=== PATIENT | female | born 1975 | race Hispanic/Latino ===

== ENCOUNTER 2017-11-29 08:39 | Inpatient (IN) | payer SELFPAY ==
[~2017-11-29] VITALS: Ht 167.6 cm; Wt 67.4 kg
[2017-11-29] MEDS ORDERED: ONDANSETRON HCL 4 MG/2 ML VIAL ONE (10:07)
[2017-11-29] MEDS ORDERED: MORPHINE SULFATE 4 MG/1ML SYG ONE ×2 (10:07→11:58)
[2017-11-29 10:33] LABS: BASOPHILS % (AUTO) 1.1 % (0.0-5.0); EOSINOPHILS % (AUTO) 0.5 % (0.0-8.0); HEMATOCRIT 42.2 % (36-48); LYMPHOCYTES % (AUTO) 17.9 % (21.0-51.0); MEAN CORPUSCULAR HEMOGLOBIN 36.3 pg (27.0-33.0); MEAN CORPUSCULAR HGB CONC 34.5 g/dL (32.0-36.0); MONOCYTES % (AUTO) 5.8 % (3.0-13.0); NEUTROPHILS % (AUTO) 74.7 % (40.0-77.0); PLATELET COUNT (AUTO) 223 K/uL (130-400); RED BLOOD CELL COUNT(AUTO) 4.01 MIL/uL (4.00-5.50); RED CELL DISTRIBUTION WIDTH 14.1 % (11.0-15.5); WHITE BLOOD COUNT (AUTO) 11.6 K/uL (4.8-10.8)
[2017-11-29 10:36] LABS: CREATININE 0.8 mg/dL (0.5-1.5); POTASSIUM 4.2 mmol/L (3.5-5.1)
[2017-11-29] MEDS ORDERED: HYDRALAZINE HCL 20 MG/ML VIAL IV PRN (12:30)
[2017-11-29] MEDS ORDERED: HYDROCODONE/ACETAMINOPHEN 5/325 MG TAB PO PRN (12:30)
[2017-11-29 12:48] LABS: HEMOGLOBIN A1C 5.1 % (4.0-6.0)
[2017-11-29 12:53] LABS: % IRON SATURATION 15.3 % (22-44)
[2017-11-29] MEDS ORDERED: HEPARIN SODIUM 5000UNIT/ML 1ML VIAL SQ SCH (14:00)
[2017-11-29] MEDS: HYDROCODONE/ACETAMINOPHEN 5/325 MG TAB PO PRN ×3 (14:02→23:41)
[2017-11-29 14:04] VITALS: BP 148/105
[2017-11-29] MEDS: SODIUM CHLORIDE 0.9% 1000ML 1,000 ML IV SCH (14:20)
[2017-11-29] MEDS ORDERED: ENOXAPARIN SODIUM 40 MG/0.4 ML SYRINGE SQ SCH (14:30)
[2017-11-29] MEDS ORDERED: MORPHINE SULFATE 2 MG/ML 1ML SYG IM PRN (15:45)
[2017-11-29] MEDS ORDERED: MORPHINE SULFATE 4 MG/1ML SYG IM PRN (15:45)
[2017-11-29 15:56] VITALS: BP 121/85
[2017-11-29 19:30] VITALS: BP 132/85
[2017-11-29] MEDS: FAMOTIDINE/PF 20 MG/2 ML VIAL IV SCH (19:49)
[2017-11-29] MEDS: NEOMY SULF/BACITRA/POLYMYXIN B 1 EACH PACKET TP SCH (20:33)
[2017-11-29] MEDS: MORPHINE SULFATE 4 MG/1ML SYG IVP PRN (21:22)
[2017-11-29] MEDS ORDERED: MORPHINE SULFATE 2 MG/ML 1ML SYG IV PRN (21:45)
[2017-11-29 22:21] LABS: APPEARANCE,URINE Clear (CLEAR); BILIRUBIN,URINE Negative (NEGATIVE); COLOR,URINE Yellow (YELLOW); GLUCOSE, URINE (UA) Negative (NEGATIVE); KETONES,URINE Negative (NEGATIVE); LEUKOCYTE ESTERASE ,URINE Negative (NEGATIVE); NITRATE,URINE Negative (NEGATIVE); OCCULT BLOOD,URINE Negative (NEGATIVE); PH,URINE 5.5 (5.0-8.0); PROTEIN,URINE Negative (NEGATIVE); UROBILINOGEN,URINE 0.2 mg/dL (0.2-1.0)
[2017-11-29 22:29] LABS: AMPHET/METH SCREEN,URINE NEGATIVE (NEGATIVE); BARBITURATE SCREEN, URINE NEGATIVE (NEGATIVE); BENZODIAZEPINES SCREEN,URINE NEGATIVE (NEGATIVE); CANNABINOID SCREEN,URINE POSITIVE (NEGATIVE); COCAINE SCREEN,URINE NEGATIVE (NEGATIVE); OPIATE SCREEN,URINE POSITIVE (NEGATIVE); PHENCYCLIDINE SCREEN,URINE NEGATIVE (NEGATIVE)
[2017-11-29 23:13] VITALS: BP 130/79
[2017-11-30] VITALS (22 sets, daily range): BP systolic 108–149; BP diastolic 49–89
[2017-11-30] MEDS: SODIUM CHLORIDE 0.9% 1000ML 1,000 ML IV SCH ×2 (01:41→20:40)
[2017-11-30 04:19] LABS: BASOPHILS % (AUTO) 0.5 % (0.0-5.0); EOSINOPHILS % (AUTO) 1.1 % (0.0-8.0); HEMATOCRIT 38.9 % (36-48); LYMPHOCYTES % (AUTO) 23.9 % (21.0-51.0); MEAN CORPUSCULAR HEMOGLOBIN 35.8 pg (27.0-33.0); MEAN CORPUSCULAR HGB CONC 34.1 g/dL (32.0-36.0); MEAN CORPUSCULAR VOLUME 104.9 fL (79-99); NEUTROPHILS % (AUTO) 65.5 % (40.0-77.0); PLATELET COUNT (AUTO) 162 K/uL (130-400); RED BLOOD CELL COUNT(AUTO) 3.71 MIL/uL (4.00-5.50); WHITE BLOOD COUNT (AUTO) 8.4 K/uL (4.8-10.8)
[2017-11-30 04:39] LABS: ALBUMIN 3.1 g/dL (3.5-5.0); BILIRUBIN,TOTAL 0.6 mg/dL (0.2-1.0); CREATININE 0.8 mg/dL (0.5-1.5); INR 0.92 (0.85-1.15); PARTIAL THROMBOPLASTIN TIME 29.6 SEC (26.3-35.5); POTASSIUM 3.8 mmol/L (3.5-5.1); PROTHROMBIN TIME 9.7 SEC (9.6-11.6); TOTAL PROTEIN, SERUM 6.6 g/dL (6.0-8.3)
[2017-11-30] MEDS: FAMOTIDINE/PF 20 MG/2 ML VIAL IV SCH ×2 (08:19→20:40)
[2017-11-30] MEDS: MORPHINE SULFATE 4 MG/1ML SYG IVP PRN (08:19)
[2017-11-30] MEDS: NEOMY SULF/BACITRA/POLYMYXIN B 1 EACH PACKET TP SCH ×2 (08:23→20:41)
[2017-11-30] MEDS: HYDROCODONE/ACETAMINOPHEN 5/325 MG TAB PO PRN (10:35)
[2017-11-30 10:39] LABS: HEMATOCRIT 39.2 % (36-48); MEAN CORPUSCULAR HEMOGLOBIN 35.9 pg (27.0-33.0); MEAN CORPUSCULAR HGB CONC 34.2 g/dL (32.0-36.0); MEAN CORPUSCULAR VOLUME 105.2 fL (79-99); PLATELET COUNT (AUTO) 165 K/uL (130-400); RED BLOOD CELL COUNT(AUTO) 3.72 MIL/uL (4.00-5.50); RED CELL DISTRIBUTION WIDTH 14.1 % (11.0-15.5); WHITE BLOOD COUNT (AUTO) 7.7 K/uL (4.8-10.8)
[2017-11-30 10:51] LABS: INR 0.92 (0.85-1.15); PARTIAL THROMBOPLASTIN TIME 29.5 SEC (26.3-35.5); PROTHROMBIN TIME 9.7 SEC (9.6-11.6)
[2017-11-30 10:52] LABS: CREATININE 0.7 mg/dL (0.5-1.5); POTASSIUM 3.9 mmol/L (3.5-5.1)
[2017-11-30] MEDS ORDERED: CEFAZOLIN SODIUM 1 GM VIAL IVP PRN (13:30)
[2017-11-30] MEDS ORDERED: PROPOFOL 10 MG/ML 20ML VIAL IV ONE (14:01)
[2017-11-30] MEDS ORDERED: MIDAZOLAM HCL 1 MG/ML 2ML VIAL ONE (14:01)
[2017-11-30] MEDS ORDERED: DEXAMETHASONE SOD PHOSPHATE 10MG/ML 1ML VIAL ONE (14:01)
[2017-11-30] MEDS ORDERED: LIDOCAINE PF 2% 5ML ABBOJECT ONE (14:01)
[2017-11-30] MEDS ORDERED: NEOSTIGMINE 5MG/5ML SYR IV ONE (14:02)
[2017-11-30] MEDS ORDERED: ROCURONIUM 10MG/1ML SYR 10 MG/ML ML ONE (14:02)
[2017-11-30] MEDS ORDERED: ONDANSETRON HCL 4 MG/2 ML VIAL ONE ×3 (14:02→17:34)
[2017-11-30] MEDS ORDERED: FENTANYL CITRATE PF 50 MCG/1 ML 2ML VIAL ONE ×2 (14:06→14:52)
[2017-11-30] MEDS ORDERED: GLYCOPYRROLATE 1 MG/5 ML SYRINGE ONE (16:24)
[2017-11-30] MEDS ORDERED: KETOROLAC TROMETHAMINE 30MG/ML ONE (16:48)
[2017-11-30] MEDS ORDERED: MEPERIDINE-PF 25 MG/ML SYG ONE (17:16)
[2017-11-30] MEDS ORDERED: METOCLOPRAMIDE 10 MG/2 ML VIAL ONE (17:34)
[2017-11-30] MEDS ORDERED: KETOROLAC TROMETHAMINE 30MG/ML IV PRN (18:45)
[2017-11-30] MEDS: HYDROCODONE/ACETAMINOPHEN 5/325 MG TAB PO SCH (20:39)
[2017-11-30] MEDS: CEFAZOLIN SODIUM 1 GM VIAL IVP SCH (20:40)
[2017-12-01 00:35] VITALS: BP 113/79
[2017-12-01] MEDS: HYDROCODONE/ACETAMINOPHEN 5/325 MG TAB PO SCH ×5 (01:01→17:00)
[2017-12-01 04:24] VITALS: BP 122/86
[2017-12-01] MEDS: CEFAZOLIN SODIUM 1 GM VIAL IVP SCH (04:59)
[2017-12-01] MEDS: SODIUM CHLORIDE 0.9% 1000ML 1,000 ML IV SCH (05:00)
[2017-12-01 06:07] LABS: BASOPHILS % (AUTO) 0.3 % (0.0-5.0); HEMATOCRIT 35.9 % (36-48); LYMPHOCYTES % (AUTO) 8.7 % (21.0-51.0); MEAN CORPUSCULAR HEMOGLOBIN 36.2 pg (27.0-33.0); MEAN CORPUSCULAR HGB CONC 34.6 g/dL (32.0-36.0); MEAN CORPUSCULAR VOLUME 104.7 fL (79-99); MONOCYTES % (AUTO) 4.8 % (3.0-13.0); NEUTROPHILS % (AUTO) 86.2 % (40.0-77.0); NUCLEATED RED BLOOD CELLS 0.1 % (0.0-0.19); PLATELET COUNT (AUTO) 185 K/uL (130-400); RED BLOOD CELL COUNT(AUTO) 3.43 MIL/uL (4.00-5.50); RED CELL DISTRIBUTION WIDTH 14.3 % (11.0-15.5); WHITE BLOOD COUNT (AUTO) 12.8 K/uL (4.8-10.8)
[2017-12-01 06:16] LABS: CREATININE 0.8 mg/dL (0.5-1.5); POTASSIUM 4.1 mmol/L (3.5-5.1)
[2017-12-01 08:00] VITALS: BP 125/78
[2017-12-01] MEDS: FAMOTIDINE/PF 20 MG/2 ML VIAL IV SCH (08:32)
[2017-12-01] MEDS: NEOMY SULF/BACITRA/POLYMYXIN B 1 EACH PACKET TP SCH (08:40)
[2017-12-01] MEDS ORDERED: ENOXAPARIN SODIUM 40 MG/0.4 ML SYRINGE SQ SCH (09:00)
[2017-12-01 11:00] VITALS: BP 126/82
[2017-12-01] MEDS ORDERED: TYL3 PO (12:56)
[2017-12-01] MEDS: HYDROCODONE/ACETAMINOPHEN 5/325 MG TAB PO PRN (16:00)
== END 2017-12-01 17:05 | disposition home or self-care (01) | DRG 494 ==
LOC: EDH 08:39 → EDHIP 08:40 → 4BH 13:28
PROVIDERS: ADMIT Internal Medicine; ATTEND Internal Medicine
PROC: 0PSC04Z Reposition Right Humeral Head with Internal Fixation Device, Open Approach (ICD-10-PCS; principal; 2017-11-30 14:13)
DX: S42.251A Displaced fracture of greater tuberosity of right humerus, initial encounter for closed fracture (principal); S80.211A Abrasion, right knee, initial encounter; E78.5 Hyperlipidemia, unspecified; F17.210 Nicotine dependence, cigarettes, uncomplicated; G56.30 Lesion of radial nerve, unspecified upper limb; W01.0XXA Fall on same level from slipping, tripping and stumbling without subsequent striking against object, initial encounter; Z83.3 Family history of diabetes mellitus; Z82.49 Family history of ischemic heart disease and other diseases of the circulatory system; Y93.89 Activity, other specified; Y92.89 Other specified places as the place of occurrence of the external cause; Y99.8 Other external cause status
CPT/HCPCS: 36415; 73030; 73060; 73070; 73200; 76000; 80048; 80053; 80305; 81003; 81025; 82607; 82948; 83036; 83540; 83550; 85025; 85027; 85610; 85730; 97039; A4218; J0690; J1100; J1650; J1885; J2001; J2175; J2250; J2270; J2405; J2704; J2710; J2765; J3010; J3490